=== PATIENT | male | born 1980 | race Caucasian/White ===

== ENCOUNTER 2023-10-09 13:07 | Inpatient (IN) | payer MEDICAID ==
[2023-10-09] MEDS ORDERED: Sodium Chloride 0.9% 10 ML Syringe FLUSH PRN (13:49)
[2023-10-09] MEDS ORDERED: Sodium Chloride 0.9% 1,000 ML IV STA (13:49)
[2023-10-09] MEDS: LORazepam 2 MG/ML SDV IVPUSH PRN ×7 (14:13→23:03)
[2023-10-09 14:16] LABS: BASOPHILS PERCENT AUTO 0.9 % (0.0-1.0); EOSINOPHILS PERCENT AUTO 0.9 % (0.0-6.0); HEMATOCRIT 37.7 % (42.0-52.0); HEMOGLOBIN 12.6 gm/dl (14.0-18.0); IMMATURE GRAN ABSOLUTE AUTO 0.01 K/mm3 (0.00-0.05); IMMATURE GRAN PERCENT AUTO 0.3 % (0.0-0.4); LYMPHOCYTES ABSOLUTE AUTO 0.4 K/mm3 (1.0-4.8); LYMPHOCYTES PERCENT AUTO 11.2 % (24.0-44.0); MEAN CORPUSCULAR HEMOGLOBIN 30.1 pg (28.0-32.0); MEAN CORPUSCULAR HGB CONC 33.4 g/dl (32.0-36.0); MEAN PLATELET VOLUME 10.1 fl (9.4-12.4); MONOCYTES ABSOLUTE AUTO 0.5 K/mm3 (0.0-0.8); MONOCYTES PERCENT AUTO 15.5 % (0.0-8.0); NEUTROPHILS ABSOLUTE AUTO 2.3 K/mm3 (1.8-7.7); NEUTROPHILS PERCENT AUTO 71.2 % (41.0-71.0); PLATELET COUNT,PLT 145 K/mm3 (150-400); RED BLOOD CELL COUNT 4.19 M/mm3 (4.52-5.90); WHITE BLOOD CELL COUNT,WBC 3.22 K/mm3 (3.9-11.3)
[2023-10-09 14:37] LABS: A/G RATIO 0.9 (1-2); ALBUMIN 3.2 g/dl (3.4-5.0); ANION GAP 12.8 (5-15); BILIRUBIN TOTAL 0.8 mg/dL (0.2-1.0); BUN/CREATININE RATIO 12.2 (14-18); CALCIUM 8.5 mg/dL (8.5-10.1); CREATININE 0.9 mg/dL (0.7-1.3); EST CRCL DRUG DOSING (CG) 109.27 mL/min; MAGNESIUM 1.6 mg/dL (1.8-2.4); POTASSIUM,K 3.8 mEq/L (3.5-5.1); PROTEIN TOTAL,TP 6.6 g/dl (6.4-8.2)
[2023-10-09 14:53] LABS: BARBITURATE SCREEN,URINE NEGATIVE (CUTOFF=200); BENZODIAZEPINES SCREEN,URINE PRESUMPTIVE POSITIVE (CUTOFF=150); BUPRENORPHINE SCREEN,URINE NEGATIVE (CUTOFF=10); METHADONE SCREEN, URINE NEGATIVE (CUT0FF=200); METHAMPHETAMINES SCREEN, URINE NEGATIVE (CUTOFF=500); OXYCODONE SCREEN,URINE NEGATIVE (CUT0FF=100); THC SCREEN,URINE 20 NG/ML PRESUMPTIVE POSITIVE (CUTOFF=50)
[2023-10-09 15:03] LABS: AMPHETAMINES SCREEN, URINE NEGATIVE (CUTOFF=500)
[2023-10-09] MEDS ORDERED: guaiFENesin 600 MG Tab.ER PO PRN (16:07)
[2023-10-09] MEDS: Ondansetron 4 MG Tab.DIS PO PRN ×2 (17:03→23:01)
[2023-10-09] MEDS: hydrOXYzine HCl 50 MG Tab PO PRN (18:18)
[2023-10-09] MEDS: Pantoprazole 40 MG Vial IV SCH (20:51)
[2023-10-09] MEDS: oxyCODONE 5 MG Tab PO PRN (20:58)
[2023-10-09] MEDS: Bismuth Subsalicylate 262 MG/15 ML Susp 236 ML Bottle PO PRN (21:33)
[2023-10-10] MEDS: LORazepam 2 MG/ML SDV IVPUSH PRN ×18 (00:15→22:09)
[2023-10-10] MEDS: hydrOXYzine HCl 50 MG Tab PO PRN ×4 (00:15→19:38)
[2023-10-10] MEDS: Bismuth Subsalicylate 262 MG/15 ML Susp 236 ML Bottle PO PRN (01:30)
[2023-10-10] MEDS: cloNIDine 0.1 MG Tab PO PRN ×4 (02:40→22:40)
[2023-10-10] MEDS: Ondansetron 4 MG Tab.DIS PO PRN ×3 (04:59→17:29)
[2023-10-10 05:31] LABS: BASOPHILS PERCENT AUTO 0.6 % (0.0-1.0); EOSINOPHILS ABSOLUTE AUTO 0.1 K/mm3 (0.0-0.4); EOSINOPHILS PERCENT AUTO 2.8 % (0.0-6.0); HEMATOCRIT 39.3 % (42.0-52.0); HEMOGLOBIN 13.1 gm/dl (14.0-18.0); IMMATURE GRAN ABSOLUTE AUTO 0.02 K/mm3 (0.00-0.05); IMMATURE GRAN PERCENT AUTO 0.4 % (0.0-0.4); LYMPHOCYTES ABSOLUTE AUTO 1.1 K/mm3 (1.0-4.8); MEAN CORPUSCULAR HEMOGLOBIN 29.4 pg (28.0-32.0); MEAN CORPUSCULAR HGB CONC 33.3 g/dl (32.0-36.0); MEAN CORPUSCULAR VOLUME 88.1 fl (83.0-99.0); MONOCYTES ABSOLUTE AUTO 0.7 K/mm3 (0.0-0.8); MONOCYTES PERCENT AUTO 14.6 % (0.0-8.0); NEUTROPHILS ABSOLUTE AUTO 2.7 K/mm3 (1.8-7.7); NEUTROPHILS PERCENT AUTO 57.6 % (41.0-71.0); PLATELET COUNT,PLT 142 K/mm3 (150-400); RED BLOOD CELL COUNT 4.46 M/mm3 (4.52-5.90); WHITE BLOOD CELL COUNT,WBC 4.71 K/mm3 (3.9-11.3)
[2023-10-10 06:02] LABS: A/G RATIO 0.8 (1-2); ALBUMIN 2.9 g/dl (3.4-5.0); ANION GAP 13.9 (5-15); BILIRUBIN TOTAL 0.6 mg/dL (0.2-1.0); CALCIUM 8.3 mg/dL (8.5-10.1); CREATININE 0.8 mg/dL (0.7-1.3); EST CRCL DRUG DOSING (CG) 122.93 mL/min; POTASSIUM,K 3.9 mEq/L (3.5-5.1); PROTEIN TOTAL,TP 6.5 g/dl (6.4-8.2)
[2023-10-10] MEDS: oxyCODONE 5 MG Tab PO PRN ×4 (06:17→17:43)
[2023-10-10] MEDS: Enoxaparin 40 MG/0.4 ML Syringe SUBCUT SCH (08:03)
[2023-10-10] MEDS: Pantoprazole 40 MG Vial IV SCH ×2 (08:04→20:11)
[2023-10-10] MEDS: Calcium Carbonate 500 MG Tab.Chew PO PRN ×3 (08:06→16:26)
[2023-10-10] MEDS: Acetaminophen 325 MG Tab PO PRN ×2 (09:20→19:32)
[2023-10-10] MEDS ORDERED: PHENobarbital Sodium 65 MG/ML SDV IVPUSH ONE (20:07)
[2023-10-10] MEDS ORDERED: LORazepam 1 MG Tab PO PRN (23:33)
[2023-10-11] MEDS: LORazepam 1 MG Tab PO PRN ×6 (00:07→15:10)
[2023-10-11] MEDS ORDERED: traZODone 50 MG Tab PO ONE (00:11)
[2023-10-11] MEDS: hydrOXYzine HCl 50 MG Tab PO PRN ×3 (01:33→15:10)
[2023-10-11] MEDS: cloNIDine 0.1 MG Tab PO PRN ×2 (04:28→20:31)
[2023-10-11 06:19] LABS: BASOPHILS ABSOLUTE AUTO 0.1 K/mm3 (0.0-0.2); EOSINOPHILS ABSOLUTE AUTO 0.2 K/mm3 (0.0-0.4); EOSINOPHILS PERCENT AUTO 3.1 % (0.0-6.0); HEMATOCRIT 36.7 % (42.0-52.0); HEMOGLOBIN 12.1 gm/dl (14.0-18.0); IMMATURE GRAN ABSOLUTE AUTO 0.02 K/mm3 (0.00-0.05); IMMATURE GRAN PERCENT AUTO 0.4 % (0.0-0.4); LYMPHOCYTES ABSOLUTE AUTO 1.1 K/mm3 (1.0-4.8); LYMPHOCYTES PERCENT AUTO 21.6 % (24.0-44.0); MEAN CORPUSCULAR HEMOGLOBIN 30.1 pg (28.0-32.0); MEAN PLATELET VOLUME 10.3 fl (9.4-12.4); MONOCYTES ABSOLUTE AUTO 0.7 K/mm3 (0.0-0.8); MONOCYTES PERCENT AUTO 14.2 % (0.0-8.0); NEUTROPHILS ABSOLUTE AUTO 3.1 K/mm3 (1.8-7.7); NEUTROPHILS PERCENT AUTO 59.7 % (41.0-71.0); PLATELET COUNT,PLT 144 K/mm3 (150-400); RED BLOOD CELL COUNT 4.02 M/mm3 (4.52-5.90); WHITE BLOOD CELL COUNT,WBC 5.22 K/mm3 (3.9-11.3)
[2023-10-11 06:26] LABS: MEAN CORPUSCULAR VOLUME 91.3 fl (83.0-99.0)
[2023-10-11 06:44] LABS: A/G RATIO 0.9 (1-2); ALBUMIN 2.9 g/dl (3.4-5.0); ANION GAP 13.9 (5-15); BILIRUBIN TOTAL 0.6 mg/dL (0.2-1.0); BUN/CREATININE RATIO 8.6 (14-18); CALCIUM 7.9 mg/dL (8.5-10.1); CREATININE 0.7 mg/dL (0.7-1.3); EST CRCL DRUG DOSING (CG) 140.5 mL/min; POTASSIUM,K 3.9 mEq/L (3.5-5.1)
[2023-10-11] MEDS: Enoxaparin 40 MG/0.4 ML Syringe SUBCUT SCH (08:00)
[2023-10-11] MEDS: Pantoprazole 40 MG Vial IV SCH ×2 (08:00→20:32)
[2023-10-11] MEDS: Acetaminophen 325 MG Tab PO PRN (19:39)
[2023-10-11] MEDS ORDERED: traZODone 50 MG Tab PO SCH (21:00)
[2023-10-12] MEDS: Calcium Carbonate 500 MG Tab.Chew PO PRN (00:26)
[2023-10-12] MEDS: hydrOXYzine HCl 50 MG Tab PO PRN (02:52)
[2023-10-12 05:38] LABS: BASOPHILS PERCENT AUTO 0.6 % (0.0-1.0); EOSINOPHILS ABSOLUTE AUTO 0.1 K/mm3 (0.0-0.4); EOSINOPHILS PERCENT AUTO 2.8 % (0.0-6.0); HEMATOCRIT 36.8 % (42.0-52.0); HEMOGLOBIN 12.3 gm/dl (14.0-18.0); IMMATURE GRAN ABSOLUTE AUTO 0.03 K/mm3 (0.00-0.05); IMMATURE GRAN PERCENT AUTO 0.6 % (0.0-0.4); LYMPHOCYTES PERCENT AUTO 20.7 % (24.0-44.0); MEAN CORPUSCULAR HEMOGLOBIN 30.5 pg (28.0-32.0); MEAN CORPUSCULAR HGB CONC 33.4 g/dl (32.0-36.0); MEAN CORPUSCULAR VOLUME 91.3 fl (83.0-99.0); MEAN PLATELET VOLUME 10.7 fl (9.4-12.4); MONOCYTES ABSOLUTE AUTO 0.5 K/mm3 (0.0-0.8); MONOCYTES PERCENT AUTO 10.5 % (0.0-8.0); NEUTROPHILS ABSOLUTE AUTO 3.2 K/mm3 (1.8-7.7); NEUTROPHILS PERCENT AUTO 64.8 % (41.0-71.0); PLATELET COUNT,PLT 172 K/mm3 (150-400); RED BLOOD CELL COUNT 4.03 M/mm3 (4.52-5.90); WHITE BLOOD CELL COUNT,WBC 4.93 K/mm3 (3.9-11.3)
[2023-10-12 05:56] LABS: ANION GAP 10.4 (5-15); BUN/CREATININE RATIO 7.1 (14-18); CALCIUM 7.9 mg/dL (8.5-10.1); CREATININE 0.7 mg/dL (0.7-1.3); EST CRCL DRUG DOSING (CG) 140.5 mL/min; POTASSIUM,K 3.4 mEq/L (3.5-5.1)
[2023-10-12] MEDS ORDERED: oxyCODONE 5 MG Tab PO PRN (06:45)
[2023-10-12] MEDS: Enoxaparin 40 MG/0.4 ML Syringe SUBCUT SCH (08:24)
[2023-10-12] MEDS: cloNIDine 0.1 MG Tab PO PRN (08:24)
[2023-10-12] MEDS: Ondansetron 4 MG Tab.DIS PO PRN (08:24)
[2023-10-12] MEDS ORDERED: Potassium Chloride 20 MEQ Tab.ER PO SCH (09:00)
[2023-10-12] MEDS: Acetaminophen 325 MG Tab PO PRN (12:09)
[2023-10-12] MEDS ORDERED: Pantoprazole 40 MG Tab.CR PO SCH (16:00)
== END 2023-10-12 13:55 | DRG 897 ==
LOC: JD.ED 13:07 → JD.ICU 16:09
PROVIDERS: ADMIT Internal Medicine; ATTEND Internal Medicine
DX: F10.239 Alcohol dependence with withdrawal, unspecified (principal); F32.A Depression, unspecified; F41.9 Anxiety disorder, unspecified; F34.1 Dysthymic disorder; K21.9 Gastro-esophageal reflux disease without esophagitis; K29.20 Alcoholic gastritis without bleeding; Z88.0 Allergy status to penicillin; Z88.8 Allergy status to other drugs, medicaments and biological substances; Z79.899 Other long term (current) drug therapy; Z56.0 Unemployment, unspecified
CPT/HCPCS: 36415; 80048; 80053; 80306; 80307; 83735; 85025; 93005; 93010; 99222; 99232; 99285; A9270-GY; C9113; J1650; J2060; J2560; J3490; J7030